=== PATIENT | male | born 1955 | race Caucasian/White ===

== ENCOUNTER 2017-04-18 13:26 | Emergency (ER) | payer OTHER ==
[~2017-04-18] VITALS: Ht 172.7 cm; Wt 96.8 kg
[~2017-04-18 13:26] MED LIST: ASPI81TA82 PO; LISI-363 PO; MELO15TA2 PO
[2017-04-18 13:34] VITALS: BP 217/104; PULSE 88; RESP 14; TEMP 98.6; O2SAT 98
[2017-04-18 13:36] VITALS: BP 201/98
[2017-04-18 13:41] VITALS: BP 217/104; PULSE 88; RESP 14; TEMP 98.6; O2SAT 98
[2017-04-18] MEDS ORDERED: PRIN20TA2 PO (13:48)
[2017-04-18] MEDS ORDERED: LATA0.002 EACH EYE (13:50)
--- NOTE | 2017-04-18 14:03 | PD ---
HPI Chief Complaint: Pain: Acute or Chronic Time Seen by Provider: 14:01 Travel History International Travel<30 days: No Contact w/Intl Traveler<30days: No Traveled to known affect area: No PFSH Past Medical History Hx Anticoagulant Therapy: No Autoimmune Disease: No Heart Rhythm Problems: No Cancer: No Cardiovascular Problems: Yes (HTN, CHOL) High Cholesterol: Yes Chemotherapy: No Chest Pain: No Congestive Heart Failure: No Cerebrovascular Accident: No Diabetes: No Diminished Hearing: No Endocrine: No Gastrointestinal Disorders: No Gout: Yes Genitourinary: No Hypertension: Yes Immune Disorder: No Implanted Vascular Access Dvce: No Musculoskeletal: Yes Neurologic: Yes Psychiatric: No Reproductive: No Respiratory: No Immunizations Current: Yes Tetanus Vaccination: Unknown Past Surgical History Abdominal Surgery: No Cardiac Surgery: No Ear Surgery: No Eye Surgery: No Genitourinary Surgery: No Neurologic Surgery: No Oral Surgery: Yes (TONSILECTOMY) Thoracic Surgery: No Tonsillectomy: Yes Other Surgery: Yes Social History Alcohol Use: Yes (RARELY) Tobacco Use: No Substance Use: No Allergies-Medications (Allergen,Severity, Reaction): Coded Allergies: Tramadol (Verified Allergy, Severe, "felt faint", 04/18/17) Reported Meds & Prescriptions Reported Meds & Active Scripts Active Indomethacin 50 Mg Cap 50 Mg PO TID 5 Days Take with food, milk, or antacids to decrease stomach adverse effects. Reported Latanoprost Opth Drops (Latanoprost) 0.005% Drops 1 Drop EACH EYE HS Refrigerate until opened. Prinivil (Lisinopril) 20 Mg Tab 40 Mg PO DAILY Data Data Last Documented VS Vital Signs Date Time Temp Pulse Resp B/P Pulse Ox O2 Delivery O2 Flow Rate FiO2 04/18/17 14:50 178/93 100 04/18/17 13:41 98.6 88 14 04/18/17 13:34 Room Air Orders Ketorolac Inj (Toradol Inj) (04/18/17 14:30) MDM Scripts Indomethacin 50 Mg Cap50 Mg PO TID 5 Days Ref 0 Take with food, milk, or antacids to decrease stomach adverse effects. Prov:Graeme Mccormick MD 04/18/17 Graeme Mccormick MD Apr 18, 2017 14:03
[2017-04-18] MEDS ORDERED: INDO50CA PO (14:16)
--- NOTE | 2017-04-18 14:18 | PD ---
HPI Chief Complaint: Pain: Acute or Chronic Time Seen by Provider: 14:00 Travel History International Travel<30 days: No Contact w/Intl Traveler<30days: No Traveled to known affect area: No History of Present Illness HPI 61 year-old male with a history of chronic kidney disease and gout presents to the emergency room for evaluation of right knee pain and swelling for the past 2 days. Denies trauma or injury. He reports history of gout in his great toe and bilateral knees but never in the location it is now. Pain is localized to the lateral right knee and worse with range of motion and ambulation. No pain at rest. States he took an Aleve without any relief in symptoms. Denies fever , chills, nausea, vomiting. History of hypertension and he did take his medication this morning. PFSH Past Medical History Hx Anticoagulant Therapy: No Autoimmune Disease: No Heart Rhythm Problems: No Cancer: No Cardiovascular Problems: Yes (HTN, CHOL) High Cholesterol: Yes Chemotherapy: No Chest Pain: No Congestive Heart Failure: No Cerebrovascular Accident: No Diabetes: No Diminished Hearing: No Endocrine: No Gastrointestinal Disorders: No Gout: Yes Genitourinary: No Hypertension: Yes Immune Disorder: No Implanted Vascular Access Dvce: No Musculoskeletal: Yes Neurologic: Yes Psychiatric: No Reproductive: No Respiratory: No Immunizations Current: Yes Tetanus Vaccination: Unknown Past Surgical History Abdominal Surgery: No Cardiac Surgery: No Ear Surgery: No Eye Surgery: No Genitourinary Surgery: No Neurologic Surgery: No Oral Surgery: Yes (TONSILECTOMY) Thoracic Surgery: No Tonsillectomy: Yes Other Surgery: Yes Social History Alcohol Use: Yes (RARELY) Tobacco Use: No Substance Use: No Allergies-Medications (Allergen,Severity, Reaction): Coded Allergies: Tramadol (Verified Allergy, Severe, "felt faint", 04/18/17) Reported Meds & Prescriptions Reported Meds & Active Scripts Active Indomethacin 50 Mg Cap 50 Mg PO TID 5 Days Take with food, milk, or antacids to decrease stomach adverse effects. Reported Latanoprost Opth Drops (Latanoprost) 0.005% Drops 1 Drop EACH EYE HS Refrigerate until opened. Prinivil (Lisinopril) 20 Mg Tab 40 Mg PO DAILY Review of Systems Except as stated in HPI: all other systems reviewed are Neg Physical Exam Narrative GENERAL: Well-nourished, well-developed male in no acute distress. Afebrile. Ambulatory. SKIN: Focused skin assessment warm/dry. No erythema or ecchymosis. HEAD: Normocephalic. EYES: No scleral icterus. No injection or drainage. NECK: Supple, trachea midline. No JVD or lymphadenopathy. CARDIOVASCULAR: Regular rate and rhythm without murmurs, gallops, or rubs. RESPIRATORY: Breath sounds equal bilaterally. No accessory muscle use. EXTREMITY: Right knee tender to palpation especially over the lateral aspect. Full range of motion in all joints with moderate pain. Mild edema of the right knee. No obvious effusion. 1+ dorsalis pedis pulse confirmed with Doppler. Data Data Last Documented VS Vital Signs Date Time Temp Pulse Resp B/P Pulse Ox O2 Delivery O2 Flow Rate FiO2 04/18/17 14:24 178/97 04/18/17 13:41 98.6 88 14 98 04/18/17 13:34 Room Air Orders Ketorolac Inj (Toradol Inj) (04/18/17 14:30) MDM Medical Decision Making Medical Screen Exam Complete: Yes Emergency Medical Condition: Yes Medical Record Reviewed: Yes Differential Diagnosis Effusion, septic arthritis unlikely, acute gouty arthritis Narrative Course 61-year-old male with history of gout presents to the emergency room for evaluation of right knee pain and swelling for the past 2 days. Patient denies trauma or injury. He has been ambulatory with moderate pain. Right knee is edematous with increased warmth. No ecchymosis or erythema. Patient has full range of motion of the knee. Right lower extremity is neurovascularly intact. There are no signs or symptoms of septic arthritis. Vital signs stable; patient is slightly hypertensive but has history of hypertension, likely whitecoat syndrome. History and physical exam are consistent with acute gouty arthritis. Patient was offered Toradol in the emergency room but concerned he cannot take this because of chronic kidney disease. His last documented creatinine at this hospital is 1.33. He'll be discharged with prescription for indomethacin and told to follow up with a primary care physician or return for worsening symptoms. He understands and agrees to plan. Diagnosis Primary Impression: Acute gout Qualified Code: M10.361 - Acute gout due to renal impairment involving right knee Referrals: Primary Care Physician Patient Instructions: General Instructions, Gout (ED) Additional Instructions: Rest and drink plenty of fluids. Take indomethacin with food as directed, as needed for pain. Elevate, wrap, and apply ice to the affected area for 20 minutes at a time, as needed for pain and swelling. Follow-up with a primary care physician. Return to the emergency room for worsening symptoms. Med/Other Pt SpecificInfo: Prescription(s) given Scripts Indomethacin 50 Mg Cap50 Mg PO TID 5 Days Ref 0 Take with food, milk, or antacids to decrease stomach adverse effects. Prov:Graeme Mccormick MD 04/18/17 Disposition: 01 DISCHARGE HOME Condition: Stable Jennie Benson Apr 18, 2017 14:18
[2017-04-18] MEDS: KETOROLAC TROMETHAMINE 60 MG/2 ML (IM) VIAL IM ONE ×2 (14:22→14:30)
[2017-04-18 14:24] VITALS: BP 178/97
[2017-04-18 14:50] VITALS: BP 178/93
--- NOTE | 2017-04-18 20:13 | PD ---
HPI Chief Complaint: Pain: Acute or Chronic Time Seen by Provider: 14:01 Travel History International Travel<30 days: No Contact w/Intl Traveler<30days: No Traveled to known affect area: No PFSH Past Medical History Hx Anticoagulant Therapy: No Autoimmune Disease: No Heart Rhythm Problems: No Cancer: No Cardiovascular Problems: Yes (HTN, CHOL) High Cholesterol: Yes Chemotherapy: No Chest Pain: No Congestive Heart Failure: No Cerebrovascular Accident: No Diabetes: No Diminished Hearing: No Endocrine: No Gastrointestinal Disorders: No Gout: Yes Genitourinary: No Hypertension: Yes Immune Disorder: No Implanted Vascular Access Dvce: No Musculoskeletal: Yes Neurologic: Yes Psychiatric: No Reproductive: No Respiratory: No Immunizations Current: Yes Tetanus Vaccination: Unknown Past Surgical History Abdominal Surgery: No Cardiac Surgery: No Ear Surgery: No Eye Surgery: No Genitourinary Surgery: No Neurologic Surgery: No Oral Surgery: Yes (TONSILECTOMY) Thoracic Surgery: No Tonsillectomy: Yes Other Surgery: Yes Social History Alcohol Use: Yes (RARELY) Tobacco Use: No Substance Use: No Allergies-Medications (Allergen,Severity, Reaction): Coded Allergies: Tramadol (Verified Allergy, Severe, "felt faint", 04/18/17) Reported Meds & Prescriptions Reported Meds & Active Scripts Active Indomethacin 50 Mg Cap 50 Mg PO TID 5 Days Take with food, milk, or antacids to decrease stomach adverse effects. Reported Latanoprost Opth Drops (Latanoprost) 0.005% Drops 1 Drop EACH EYE HS Refrigerate until opened. Prinivil (Lisinopril) 20 Mg Tab 40 Mg PO DAILY Data Data Last Documented VS Vital Signs Date Time Temp Pulse Resp B/P Pulse Ox O2 Delivery O2 Flow Rate FiO2 04/18/17 14:50 178/93 100 04/18/17 13:41 98.6 88 14 04/18/17 13:34 Room Air Orders Ketorolac Inj (Toradol Inj) (04/18/17 14:30) MDM Diagnosis Primary Impression: Acute gout Referrals: Primary Care Physician Patient Instructions: General Instructions, Gout (ED) Departure Forms: Tests/Procedures Additional Instructions: Rest and drink plenty of fluids. Take indomethacin with food as directed, as needed for pain. Elevate, wrap, and apply ice to the affected area for 20 minutes at a time, as needed for pain and swelling. Follow-up with a primary care physician. Return to the emergency room for worsening symptoms. Scripts Indomethacin 50 Mg Cap50 Mg PO TID 5 Days Ref 0 Take with food, milk, or antacids to decrease stomach adverse effects. Prov:Graeme Mccormick MD 04/18/17 Disposition: 01 DISCHARGE HOME Condition: Stable Graeme Mccormick MD Apr 18, 2017 20:13
== END 2017-04-18 14:51 | disposition home or self-care (01) ==
LOC: PHEFT 13:26
DX: M10.361 Gout due to renal impairment, right knee (principal); N18.9 Chronic kidney disease, unspecified; I12.9 Hypertensive chronic kidney disease with stage 1 through stage 4 chronic kidney disease, or unspecified chronic kidney disease; E78.00 Pure hypercholesterolemia, unspecified; Z87.39 Personal history of other diseases of the musculoskeletal system and connective tissue; Z86.69 Personal history of other diseases of the nervous system and sense organs
CPT/HCPCS: 99283; J1885